=== PATIENT | female | born 1945 | race African-American/Black ===

== ENCOUNTER 2017-01-17 14:58 | Emergency (ER) | payer OTHER, BC ==
[2017-01-17 15:10] VITALS: BP 156/87; PULSE 79; TEMP 98.3; BMI 33.6
--- NOTE | 2017-01-17 15:26 | PDOC ---
History of Present Illness <Lai Lombardi - Last Filed: 01/17/17 22:53> - General History Source: Patient - History of Present Illness Initial Comments: 01/17/17 18:10 71F with pmh of DM2 and HTN presents with 6-7/10 bitemporal headache and short- term memory loss for the past 5 days. Headaches have apparent random setting, associated with red eyes and blurry vision/decrease in acuity. Patient reports usual home BP in the 120's/70's and FS 120's. Patient's friend reports her being usually way more energetic and bubbly. 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 01/18/17 14:15 <Mando Kevin - Last Filed: 01/18/17 14:20> - General Chief Complaint: CVA/TIA Stated Complaint: HEADACHE Time Seen by Provider: 01/17/17 15:22 Past History <Lai Lombardi - Last Filed: 01/17/17 22:53> - Past Medical History Diabetes: Yes HTN: Yes - Psycho/Social/Smoking Cessation Hx Suicidal Ideation: No Smoking History: Never smoked <Mando Kevin - Last Filed: 01/18/17 14:20> - Past Medical History Allergies/Adverse Reactions: Allergies Allergy/AdvReac Type Severity Reaction Status Date / Time HANNAH Inhibitors Allergy Verified 01/17/17 15:07 ciprofloxacin [From Cipro] Allergy Verified 01/17/17 15:07 ciprofloxacin HCl Allergy Verified 01/17/17 15:07 [From Cipro] Home Medications: Ambulatory Orders Losartan Potassium [Cozaar] 125 mg PO DAILY 01/17/17 Metformin HCl 500 mg PO BID 01/17/17 Metoprolol Succinate [Toprol Xl] 50 mg PO DAILY 01/17/17 Review of Systems - Review of Systems Constitutional: Yes: See HPI HEENTM: No: Symptoms Reported, Recent change in vision Respiratory: No: Symptoms reported Cardiac (ROS): No: Symptoms Reported ABD/GI: No: Symptoms Reported : No: Symptoms Reported Neurological: Yes: See HPI, Headache. No: Seizure, Tingling All Other Systems: Reviewed and Negative <Mando Kevin - Last Filed: 01/18/17 14:20> *Physical Exam - Vital Signs Last Vital Signs Temp Pulse Resp BP Pulse Ox 98.3 F 79 18 156/87 95 01/17/17 15:08 01/17/17 15:08 01/17/17 15:08 01/17/17 15:08 01/17/17 15:08 <Lai Lombardi - Last Filed: 01/17/17 22:53> - Vital Signs Last Vital Signs Temp Pulse Resp BP Pulse Ox 98.3 F 79 18 156/87 95 01/17/17 15:08 01/17/17 15:08 01/17/17 15:08 01/17/17 15:08 01/17/17 15:08 - Physical Exam General Appearance: Yes: Nourished, Appropriately Dressed. No: Apparent Distress HEENT: positive: EOMI, JOSE G, Normal ENT Inspection Neck: positive: Trachea midline, Normal Thyroid. negative: Tender Respiratory/Chest: positive: Lungs Clear, Normal Breath Sounds. negative: Chest Tender Cardiovascular: positive: Regular Rhythm, Regular Rate, S1, S2 Vascular Pulses: Dorsalis-Pedis (R): 2+, Doralis-Pedis (L): 2+ Musculoskeletal: positive: Normal Inspection Extremity: positive: Normal Capillary Refill Integumentary: positive: Normal Color, Dry, Warm Neurologic: positive: Fully Oriented, Alert, Normal Mood/Affect, Motor Strength 5/5. negative: Confused (minimental 28/30 failed backward 7's and backward spelling) <Mando Kevin - Last Filed: 01/18/17 14:20> NIH Stroke Scale - Initial Evaluation Level of consciousness: Alert Ask patient the month and their age: Answers both correctly Ask patient to open & close eyes; make fist and let go: Obeys both correctly Best gaze (horizontal eye movement): Normal Visual field testing: No visual field loss Facial paresis (Show teeth/raise eyebrows/close eyes tight): Normal symmetrical movement Motor Function: Left Arm: Normal Motor Function: Right Arm: Normal (extends arm 90 (or 45) degrees for 10 seconds without drift Motor Function: Left Leg: Normal (extends leg 30 degrees for 5 seconds without drift) Motor Function: Right Leg: Normal (extends leg 30 degrees for 5 seconds without drift) Limb Ataxia: No ataxia Sensory(Use pinprick test arms,legs,trunk,face/side to side): Normal Best language (Describe picture, name items, read sentences): No Aphasia Dysarthria (read several words): Normal articulation Extinction and Inattention: No abnormality - Total Score NIH Stroke Scale Score: 0 <Mando Kevin - Last Filed: 01/18/17 14:20> Critical Care Time/MDM Note - Medical Decision Making Note: 01/17/17 16:07 71F with pmh of DM2 and HTN presents with 6-7/10 bitemporal headache and short- term memory [facility] the [facility] CT necessary Mini-mental 28/30 Failed backwards 7's and backward word. 01/17/17 17:37 CT head negative Patient d/c 01/17/17 22:02 01/18/17 14:19 <Mando Kevin - Last Filed: 01/18/17 14:20> Discharge Disposition <Lai Lombardi - Last Filed: 01/17/17 22:53> - Discharge Dispostion Last Admission D/C Date: 02/14/11 <HerberthMando - Last Filed: 01/18/17 14:20> - Diagnosis Head ache Qualifiers: Headache type: unspecified Headache chronicity pattern: acute headache Intractability: not intractable Qualified Code(s): R51 - Headache - Discharge Dispostion Disposition: HOME Condition at time of disposition: Stable - Referrals Referrals: Yeyo Anderson MD [Primary Care Provider] - Uriel Hampton MD [Staff Physician] - - Patient Instructions Printed Discharge Instructions: DI for Headache
--- NOTE | 2017-01-17 17:28 | PDOC ---
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 pt denies trauma/ fever/chills/focl motor weakness. no previous hx/o similar sxs/migraines. - Physicial Exam PE: 01/17/17 22:52 Patient is awake and alert, resting comfortably. Patient is afebrile and hemodynamically stable. Cranial nerves II through XII are grossly intact; motor is 5 of 54; there is no pronation drift; gait is stable. Mini-Mental exam score 28. Patient is unable to perform serial sevens. - Medical Decision Making 01/17/17 22:52 Patient is 71-year-old female with history of diabetes and hypertension who presents to the ER with bilateral atraumatic temporal headache associated with episodes of foot changes in visual acuity and confusion. In the ER, patient is asymptomatic with the exception of inability to perform serial sevens. CT of head shows no evidence of acute cranial pathology. ESR is within normal limit. I do not suspect an acute vascular event at this time. Case discussed with neurology. Will discharge with neurology follow-up.
[2017-01-17 17:41] LABS: BASOPHIL 0.3 % (0-2.0); EOSINOPHIL 1.6 % (0-4.5); MCH 30.2 pg (25.7-33.7); MEAN CELL VOLUME 88.9 fl (80-96); MEAN PLT VOLUME 10.3 fl (7.5-11.1); NEUTROPHILS 55.7 % (42.8-82.8); PLATELET COUNT 214 K/MM3 (134-434); RDW 14.2 % (11.6-15.6); WHITE BLOOD COUNT 7.5 K/mm3 (4.0-10.0)
[2017-01-17 17:43] LABS: URINE APPEARANCE CLEAR; URINE BILIRUBIN NEGATIVE (NEGATIVE); URINE BLOOD NEGATIVE (NEGATIVE); URINE COLOR STRAW; URINE GLUCOSE (UA) NEGATIVE (NEGATIVE); URINE KETONE NEGATIVE (NEGATIVE); URINE LEUK ESTERASE NEGATIVE (NEGATIVE); URINE NITRITE NEGATIVE (NEGATIVE); URINE PROTEIN NEGATIVE (NEGATIVE); URINE UROBILINOGEN NEGATIVE mg/dL (0.2-1.0)
[2017-01-17 18:03] LABS: ALBUMIN 4.2 g/dl (3.4-5.0); ANION GAP 8 (8-16); BILIRUBIN,TOTAL 0.5 mg/dL (0.2-1.0); CALCIUM 9.4 mg/dL (8.5-10.1); CO2 31 mmol/L (21-32); CREATININE 0.8 mg/dL (0.55-1.02); GLUCOSE,RANDOM 89 mg/dL (74-106); SGOT/AST 20 U/L (15-37); SGPT/ALT 23 U/L (12-78); TOT PROT 8.2 g/dl (6.4-8.2)
[2017-01-17 18:04] LABS: ALK PHOS 69 U/L (45-117)
--- NOTE | 2017-01-18 16:44 | EKG ---
Test Reason : Blood Pressure : / mmHG Vent. Rate : 064 BPM Atrial Rate : 064 BPM P-R Int : 142 ms QRS Dur : 078 ms QT Int : 404 ms P-R-T Axes : 045 -12 013 degrees QTc Int : 416 ms NORMAL SINUS RHYTHM VOLTAGE CRITERIA FOR LEFT VENTRICULAR HYPERTROPHY ABNORMAL ECG WHEN COMPARED WITH ECG OF 11-FEB-2011 09:20, NO SIGNIFICANT CHANGE WAS FOUND Confirmed by JESSE GALICIA MD ([id number]) on 01/18/2017 4:44:07 PM Referred By: Confirmed By:JESSE GALICIA MD
== END 2017-01-17 22:56 | disposition home or self-care (01) ==
LOC: JER 14:58
DX: R51 Headache (principal); I10 Essential (primary) hypertension; E11.9 Type 2 diabetes mellitus without complications; Z88.1 Allergy status to other antibiotic agents; Z79.84 Long term (current) use of oral hypoglycemic drugs
CPT/HCPCS: 36415; 70450-TC; 71020-TC; 80053; 81003; 85025; 85651; 86140; 93005; 93010; 99283-25

== ENCOUNTER 2017-01-27 13:58 | Emergency (ER) | payer OTHER, BC ==
[2017-01-27 14:23] VITALS: BP 138/86; PULSE 91; TEMP 98.2; BMI 35.4
--- NOTE | 2017-01-27 15:22 | PDOC ---
History of Present Illness - General History Source: Patient Exam Limitations: No Limitations - History of Present Illness Initial Comments: The patient is a 72 yo F with a PMHx significant for DM and HTN who presents with edema and pain on the lateral aspect of her LLE since yesterday. The patient notes she was here 10 days ago ago for headaches where she also endorses LLE numbness and tingling. She states the sensation was radiating from her knee to her big toe at the time. She notes it feels like her leg is falling asleep. The patient also endorses mild SOB and palpitations. The patient denies chest pain and lightheadedness. She denies trauma to the LLE. She denies calf pain. Patient states her last A1C was 6.5. She denies abdominal pain, nausea, vomiting and diarrhea. She denies fevers, chills and cough. She denies back pain. She notes she can walk up a city block but then gets muscle cramps and needs a break. <Chichi Marin - Last Filed: 01/27/17 16:30> - General History Source: Patient Exam Limitations: No Limitations <Carley Gallagher - Last Filed: 01/28/17 20:56> - General Chief Complaint: Edema Stated Complaint: R/O DVT Time Seen by Provider: 01/27/17 15:21 Past History <Chichi Marin - Last Filed: 01/27/17 16:30> - Past Medical History Diabetes: Yes HTN: Yes - Psycho/Social/Smoking Cessation Hx Suicidal Ideation: No Smoking History: Never smoked <Carley Gallagher - Last Filed: 01/28/17 20:56> - Past Medical History Allergies/Adverse Reactions: Allergies Allergy/AdvReac Type Severity Reaction Status Date / Time HANNAH Inhibitors Allergy Verified 01/27/17 14:18 ciprofloxacin [From Cipro] Allergy Verified 01/27/17 14:18 ciprofloxacin HCl Allergy Verified 01/27/17 14:18 [From Cipro] Home Medications: Ambulatory Orders Losartan Potassium [Cozaar] 125 mg PO DAILY 01/17/17 Metformin HCl 500 mg PO BID 01/17/17 Metoprolol Succinate [Toprol Xl] 50 mg PO DAILY 01/17/17 Review of Systems - Review of Systems Able to Perform ROS?: Yes Comments:: GENERAL/CONSTITUTIONAL: No fever or chills. No weakness. HEAD, EYES, EARS, NOSE AND THROAT: No change in vision. No ear pain or discharge. No sore throat. CARDIOVASCULAR: +mild SOB and occasional palpitations No chest pain. RESPIRATORY: No cough, wheezing, or hemoptysis. GASTROINTESTINAL: No nausea, vomiting, diarrhea or constipation. GENITOURINARY: No dysuria, frequency, or change in urination. MUSCULOSKELETAL: +LLE edema and pain. No neck or back pain. SKIN: No rash NEUROLOGIC: No headache, vertigo, loss of consciousness, or change in strength/ sensation. ENDOCRINE: No increased thirst. No abnormal weight change. HEMATOLOGIC/LYMPHATIC: No anemia, easy bleeding, or history of blood clots. ALLERGIC/IMMUNOLOGIC: No hives or skin allergy. <Chichi Marin - Last Filed: 01/27/17 16:30> *Physical Exam - Vital Signs Last Vital Signs Temp Pulse Resp BP Pulse Ox 98.2 F 91 H 19 138/86 96 01/27/17 14:19 01/27/17 14:19 01/27/17 14:19 01/27/17 14:19 01/27/17 14:19 - Physical Exam Comments: GENERAL: Awake, alert, and fully oriented, in no acute distress HEAD: No signs of trauma EYES: PERRLA, EOMI, sclera anicteric, conjunctiva clear ENT: Auricles normal inspection, hearing grossly normal, nares patent, oropharynx clear without exudates. Moist mucosa NECK: Normal ROM, supple, no lymphadenopathy, JVD, or masses LUNGS: Breath sounds equal, clear to auscultation bilaterally. No wheezes, and no crackles HEART: Regular rate and rhythm, normal S1 and S2, no murmurs, rubs or gallops ABDOMEN: Soft, nontender, normoactive bowel sounds. No guarding, no rebound. No masses EXTREMITIES: Normal range of motion, no edema. No clubbing or cyanosis. No cords, erythema, L lateral calf bruising and tenderness NEUROLOGICAL: Cranial nerves II through XII grossly intact. Normal speech, normal gait SKIN: Warm, Dry, normal turgor, no rashes or lesions noted. <Chichi Marin - Last Filed: 01/27/17 16:30> - Vital Signs Last Vital Signs Temp Pulse Resp BP Pulse Ox 98.2 F 91 H 19 138/86 96 01/27/17 14:19 01/27/17 14:19 01/27/17 14:19 01/27/17 14:19 01/27/17 14:19 <Carley Gallagher - Last Filed: 01/28/17 20:56> Medical Decision Making - Medical Decision Making 01/27/17 15:21 A portion of this note was documented by scribe services under my direction. I have reviewed the details of the note, within reason, and agree with the documentation with the following case summary and management plan written by me. Nursing documentation reviewed and incorporated into medical decision making 01/27/17 17:59 This is a 72 yo F with a history of DM on oral hypoglycemics pt presents to the ER with a complaint of left leg pain No trauma No skin changes No prior episodes like this No recent immobilization No chest pain No shortness of breath No palpitations On examination Pt is ambulatory with no difficulty Left lateral leg, small bruise Mild popliteal fossa tenderness Seen by PMD Sent to the ER for Duplex Duplex demonstrates no DVT Pt has a Bakers cyst Will discharge to home Will ask pt to follow up with her Orthopedic attending She has an appointment already next week Pt given copies of her US <Carley Gallagher - Last Filed: 01/28/17 20:56> *DC/Admit/Observation/Transfer - Attestations Scribe Attestion: Documentation prepared by Chichi Marin, acting as associate medical director for Carley Gallagher MD/DO. <Chichi Marin - Last Filed: 01/27/17 16:30> - Discharge Dispostion Admit: No <Carley Gallagher - Last Filed: 01/28/17 20:56> Diagnosis at time of Disposition: Dugan's cyst, unruptured Qualifiers: Laterality: left Qualified Code(s): M71.22 - Synovial cyst of popliteal space [ Dugan], left knee - Discharge Dispostion Disposition: HOME Condition at time of disposition: Stable - Referrals Referrals: Yeyo Anderson MD [Primary Care Provider] - - Patient Instructions Printed Discharge Instructions: Bakers Cyst Additional Instructions: Thank you for coming in to the ER today Please follow up with your Orthopedist next week Please return to the ER for any other concerns or complaints
== END 2017-01-27 18:35 | disposition home or self-care (01) ==
LOC: JER 13:58 → JERFT 13:58 → JER 18:35
DX: M71.22 Synovial cyst of popliteal space [Baker], left knee (principal); I10 Essential (primary) hypertension; E11.9 Type 2 diabetes mellitus without complications; Z79.84 Long term (current) use of oral hypoglycemic drugs
CPT/HCPCS: 93970-TC; 99282-25

== ENCOUNTER 2018-07-20 11:41 | Observation (INO) | payer OTHER, BC ==
--- NOTE | 2018-07-20 11:56 | PDOC ---
History of Present Illness - General Chief Complaint: Blood Pressure Problem Stated Complaint: HYPERTENSION Time Seen by Provider: 07/20/18 11:56 History Source: Patient Exam Limitations: No Limitations - History of Present Illness Initial Comments: 07/20/18 12:26 73 year old female with PMH HTN, DM, HLD presented to ED for generalized weakness x5 days. Pt stated Monday morning she awoke more generally weak than normal, Monday she had bilateral blurry vision lasting 4-5 hours that self resolved, Monday she was generally weak/sore throat/runny nose/right ear pain and slept all day, she had disequilibrium, and today she complains of generalized weakness. Pt admitted to intermittent headache and a single episode of sharp chest pain lasting 5 minutes 2 days ago. Pt denied fever , chills, tinnitus, weakness, numbness, tingling, shortness of breath, nausea, vomiting, diarrhea, abdominal pain, back pain, lower extremity swelling. Allergies: ACEI, Cipro NIH Stroke Scale - Last Known Well Date/Time & Onset Date Last Known Well: 07/19/18 - Initial Evaluation Level of consciousness: Alert Ask patient the month and their age: Answers both correctly Ask patient to open & close eyes; make fist and let go: Obeys both correctly Best gaze (horizontal eye movement): Normal Visual field testing: No visual field loss Facial paresis (Show teeth/raise eyebrows/close eyes tight): Normal symmetrical movement Motor Function: Left Arm: Normal Motor Function: Right Arm: Normal (extends arm 90 (or 45) degrees for 10 seconds without drift Motor Function: Left Leg: Normal (extends leg 30 degrees for 5 seconds without drift) Motor Function: Right Leg: Normal (extends leg 30 degrees for 5 seconds without drift) Limb Ataxia: No ataxia Sensory(Use pinprick test arms,legs,trunk,face/side to side): Mild to moderate decrease in sensation Best language (Describe picture, name items, read sentences): No Aphasia Dysarthria (read several words): Normal articulation Extinction and Inattention: No abnormality - Total Score NIH Stroke Scale Score: 1 Past History - Past Medical History Allergies/Adverse Reactions: Allergies Allergy/AdvReac Type Severity Reaction Status Date / Time HANNAH Inhibitors Allergy Verified 07/20/18 11:49 ciprofloxacin [From Cipro] Allergy Verified 07/20/18 11:49 ciprofloxacin HCl Allergy Verified 07/20/18 11:49 [From Cipro] Home Medications: Ambulatory Orders Metoprolol Succinate [Toprol Xl] 100 mg PO DAILY 01/17/17 metFORMIN HCL [Metformin HCl] 500 mg PO BID 01/17/17 Losartan/Hydrochlorothiazide [Losartan-Hctz 100-25 mg Tab] 1 each PO DAILY 07/20 Acetaminophen [Tylenol .Regular Strength -] 650 mg PO Q4H PRN tablet 07/21/18 Aspirin [ASA -] 81 mg PO DAILY tab.chew 07/21/18 Atorvastatin Ca [Lipitor] 10 mg PO HS #30 tablet 07/21/18 COPD: No Diabetes: Yes HTN: Yes - Suicide/Smoking/Psychosocial Hx Smoking History: Never smoked Review of Systems - Review of Systems Able to Perform ROS?: Yes Comments:: 07/20/18 12:30 General: admitted to generalized weakness. denied fever, chills, night sweats. HEENT: admitted to sore throat, rhinorrhea, ear pain. Heart: admitted to chest pain. denied palpitations, syncope, lower extremity swelling, diaphoresis. Respiratory: denied shortness of breath, cough, sputum production, hemoptysis. Abdomen: denied abdominal pain, nausea, vomiting, diarrhea, constipation, blood in stool. : denied dysuria, increased urinary frequency, hematuria, urinary incontinence , flank pain. Back: denied back pain. Musculoskeletal: denied joint pain, muscle pain, joint swelling. Neurological: admitted to headache, disequilibrium. denied dizziness, numbness, tingling, weakness. Skin: denied rash, laceration, abrasion. *Physical Exam - Vital Signs Last Vital Signs Temp Pulse Resp BP Pulse Ox 98.8 F 100 H 18 156/93 98 07/20/18 11:49 07/20/18 11:49 07/20/18 11:49 07/20/18 11:49 07/20/18 11:49 - Physical Exam Comments: 07/20/18 12:40 Constitutional: Well-nourished, Well-developed, appearing stated age. HEENT: head is normocephalic, atraumatic. EOMI. PERRLA. no erythema or bulging to TM bilaterally. no posterior pharyngeal erythema. pain with insertion of otoscope into right ear. no pain with pulling of right pinna. Neck: supple. Full ROM. no midline c-spine tenderness. no paraspinal tenderness. Heart: regular rhythm. no murmurs, rubs or gallops. Lungs: clear to auscultation bilaterally. no crackles, rhonchi or wheezing. no stridor. Abdomen: soft, nontender. normal bowel sounds. no rebound, guarding, masses. Extremities: Peripheral pulses intact. No lower extremity edema. Neurological: Alert. Oriented x3. CN2-12 intact. 5/5 strength all extremities. Full sensation all extremities and bilateral face, but decreased to the entire right side. Romberg negative. Finger to nose normal. Gait normal. Psych: awake, alert, oriented x3. Follows commands. Answers questions appropriately. tearful, anxious. Moderate Sedation - Procedure Monitoring Vital Signs: Procedure Monitoring Vital Signs Temperature 98.8 F 07/20/18 11:49 Pulse Rate 100 H 07/20/18 11:49 Respiratory Rate 18 07/20/18 11:49 Blood Pressure 156/93 07/20/18 11:49 O2 Sat by Pulse Oximetry (%) 98 07/20/18 11:49 ED Treatment Course - LABORATORY CBC & Chemistry Diagram: 07/21/18 07:00 07/21/18 07:00 Medical Decision Making - Medical Decision Making 07/20/18 12:41 73 year old female with above PMH presented to ED for generalized weakness associated with resolved disequilibrium, resolved sore throat/runny nose/right ear pain, resolved chest pain, headache. Initial Vital Signs Temp Pulse Resp BP Pulse Ox 98.8 F 100 H 18 156/93 98 07/20/18 11:49 07/20/18 11:49 07/20/18 11:49 07/20/18 11:49 07/20/18 11:49 Afebrile. Borderline tachycardia. No tachypnea. Mild hypertension. No hypoxia on room air. o Labs ordered: CBC, CMP, UA/UC, troponin c Imaging ordered: CT head g Medications ordered: none EKG performed at 1210: rate 91, regular rhythm, left axis, normal intervals, no acute ST changes, 2 PVCs. 07/20/18 13:[address] head report: negative for acute intracranial pathology CBC WBC 10.6 K/mm3 (4.0-10.0) H 07/20/18 12:25 RBC 4.77 M/mm3 (3.60-5.2) 07/20/18 12:25 Hgb 15.4 GM/dL (10.7-15.3) H 07/20/18 12:25 Hct 44.0 % (32.4-45.2) 07/20/18 12:25 MCV 92.3 fl (80-96) 07/20/18 12:25 MCH 32.2 pg (25.7-33.7) 07/20/18 12:25 MCHC 35.0 g/dl (32.0-36.0) 07/20/18 12:25 RDW 16.4 % (11.6-15.6) H 07/20/18 12:25 Plt Count 200 K/MM3 (134-434) 07/20/18 12:25 MPV 10.3 fl (7.5-11.1) 07/20/18 12:25 Absolute Neuts (auto) 8.0 K/mm3 (1.5-8.0) 07/20/18 12:25 Neutrophils % 75.3 % (42.8-82.8) D 07/20/18 12:25 Lymphocytes % 16.3 % (8-40) D 07/20/18 12:25 Monocytes % 7.6 % (3.8-10.2) 07/20/18 12:25 Eosinophils % 0.5 % (0-4.5) 07/20/18 12:25 Basophils % 0.3 % (0-2.0) 07/20/18 12:25 Nucleated RBC % 0 % (0-0) 07/20/18 12:25 Mild leukocytosis with no left shift. CMP Sodium 141 mmol/L (136-145) 07/20/18 12:24 Potassium 3.7 mmol/L (3.5-5.1) 07/20/18 12:24 Chloride 106 mmol/L (98-107) 07/20/18 12:24 Carbon Dioxide 28 mmol/L (21-32) 07/20/18 12:24 Anion Gap 7 MMOL/L (8-16) L 07/20/18 12:24 BUN 14 mg/dL (7-18) 07/20/18 12:24 Creatinine 0.9 mg/dL (0.55-1.3) 07/20/18 12:24 Creat Clearance w eGFR > 60 (>60) 07/20/18 12:24 Random Glucose 125 mg/dL (74-106) H 07/20/18 12:24 Calcium 9.6 mg/dL (8.5-10.1) 07/20/18 12:24 Total Bilirubin 0.5 mg/dL (0.2-1) 07/20/18 12:24 AST 18 U/L (15-37) 07/20/18 12:24 ALT 17 U/L (13-61) 07/20/18 12:24 Alkaline Phosphatase 69 U/L (45-117) 07/20/18 12:24 Troponin I < 0.02 ng/ml (0.00-0.05) 07/20/18 12:10 Total Protein 8.3 g/dl (6.4-8.2) H 07/20/18 12:24 Albumin 4.0 g/dl (3.4-5.0) 07/20/18 12:24 No electrolyte abnormalities. No RICO. Normal troponin. No transaminitis. 07/20/18 13:[address] Babar Samuel, who recommeded admission for rule out TIA. Pt admitted. 07/20/18 14:10 Urine Test Results Urine Color Yellow 07/20/18 12:45 Urine Appearance Slcloudy 07/20/18 12:45 Urine pH 5.0 (5.0-8.0) 07/20/18 12:45 Ur Specific Senath 1.020 (1.010-1.035) 07/20/18 12:45 Urine Protein 3+ (NEGATIVE) H 07/20/18 12:45 Urine Glucose (UA) Negative (NEGATIVE) 07/20/18 12:45 Urine Ketones Negative (NEGATIVE) 07/20/18 12:45 Urine Blood Negative (NEGATIVE) 07/20/18 12:45 Urine Nitrite Negative (NEGATIVE) 07/20/18 12:45 Urine Bilirubin Negative (<2.0 mg/dL) 07/20/18 12:45 Ur Leukocyte Esterase Negative (NEGATIVE) 07/20/18 12:45 No evidence of UTI. Protein in urine. c CXR my read: no infiltrate. sharp costophrenic angles. no cardiomegaly. no large pneumothorax. - Pending official report. 07/21/18 15:12 Official report: negative for infiltrate, pleural effusion, pneumothorax. *DC/Admit/Observation/Transfer Diagnosis at time of Disposition: Blurry vision, Disequilibrium, Generalized weakness - Discharge Dispostion Disposition: HOME Condition at time of disposition: Stable Decision to Admit order: Yes - Prescriptions - Referrals - Patient Instructions - Post Discharge Activity
[2018-07-20 12:57] LABS: BASO % 0.3 % (0-2.0); EOS % 0.5 % (0-4.5); HEMOGLOBIN 15.4 GM/dL (10.7-15.3); LYMPH % 16.3 % (8-40); MCH 32.2 pg (25.7-33.7); MEAN CELL VOLUME 92.3 fl (80-96); MEAN PLT VOLUME 10.3 fl (7.5-11.1); MONO % 7.6 % (3.8-10.2); NEUT % 75.3 % (42.8-82.8); PLATELET COUNT 200 K/MM3 (134-434); RBC 4.77 M/mm3 (3.60-5.2); RDW 16.4 % (11.6-15.6); WHITE BLOOD COUNT 10.6 K/mm3 (4.0-10.0)
[2018-07-20 13:07] LABS: ALK PHOS 69 U/L (45-117); ANION GAP 7 MMOL/L (8-16); BILIRUBIN,TOTAL 0.5 mg/dL (0.2-1); BLOOD UREA NITROGEN 14 mg/dL (7-18); CALCIUM 9.6 mg/dL (8.5-10.1); CHLORIDE 106 mmol/L (98-107); CO2 28 mmol/L (21-32); CREATININE 0.9 mg/dL (0.55-1.3); GLUCOSE,RANDOM 125 mg/dL (74-106); POTASSIUM 3.7 mmol/L (3.5-5.1); SGOT/AST 18 U/L (15-37); SGPT/ALT 17 U/L (13-61); SODIUM 141 mmol/L (136-145); TOT PROT 8.3 g/dl (6.4-8.2)
[2018-07-20 14:04] LABS: URINE APPEARANCE SLCLOUDY; URINE BILIRUBIN NEGATIVE (<2.0 mg/dL); URINE COLOR YELLOW; URINE GLUCOSE (UA) NEGATIVE (NEGATIVE); URINE KETONE NEGATIVE (NEGATIVE); URINE LEUK ESTERASE NEGATIVE (NEGATIVE); URINE NITRITE NEGATIVE (NEGATIVE); URINE PROTEIN 3+ (NEGATIVE); URINE UROBILINOGEN NEGATIVE mg/dL (0.2-1.0)
--- NOTE | 2018-07-20 14:04 | PDOC ---
Attending Attestation - Resident Resident Name: Angeli Chilel - ED Attending Attestation I have performed the following: I have examined & evaluated the patient, The case was reviewed & discussed with the resident, I agree w/resident's findings & plan, Exceptions are as noted - Medical Decision Making 07/20/18 14:00 73 yo HTN HLD DM here with feeling fatigued for 4 days. has blurry vision ( hazy ) four days ago, then felt generalized weakess. felt like equilibrium off, no difficulty walking but has sensation of movement. also runny nose, right ear fullness. no focal weakness no change to speech, vision changes resolved. no cp no sob. no f/c no urinary complaints. on exam pt wiht normal nuerological exam, normal cerebellar exam ( finger to nose, gait, alt hand movement, neg romberg) strength 5/5. and CN II - XII intact. . differential : labrynthitis, cerebellar cva, tia, infeciton such as uti or pna, mi. plan labs ekg ct head. cxr ua. ct head normal. labs normal. ua. will admit for mri due to risk factors, and r/ o cerebellar tia, cva. d/w milo Samuel, admit. <Zahraa Galvez - Last Filed: 07/20/18 14:00> - HPI HPI: 07/20/18 14:16 The patient is a 73 year old female, with a significant past medical history of HTN, DM, and HLD who presents to the emergency department with 5 days of generalized weakness. Patient notes that Monday morning she woke up weaker than usual. Monday she had bilateral blurry vision described as "hazy" that self resolved, Monday she had a sore throat, runny nose, and right ear pain that later self resolved, she had disequilibrium, and today she complains of generalized weakness. The patient denies tinnitus, weakness, or numbness. The patient denies chest pain, shortness of breath, headache and dizziness. The patient denies fever, chills, nausea, vomit, diarrhea and constipation. The patient denies dysuria, frequency, urgency and hematuria. Allergies: ACEI, Cipro Past surgical history: None reported Social history: None reported PCP: Dr. Anderson - Physicial Exam PE: 07/20/18 14:17 GENERAL: Awake, alert, and fully oriented, in no acute distress HEAD: No signs of trauma EYES: PERRLA, EOMI, sclera anicteric, conjunctiva clear ENT: Auricles normal inspection, hearing grossly normal, nares patent, oropharynx clear without exudates. Moist mucosa NECK: Normal ROM, supple, no lymphadenopathy, JVD, or masses LUNGS: Breath sounds equal, clear to auscultation bilaterally. Cardiac lungs normal. No wheezes, and no crackles HEART: Regular rate and rhythm, normal S1 and S2, no murmurs, rubs or gallops ABDOMEN: Soft, nontender, normoactive bowel sounds. No guarding, no rebound. No masses EXTREMITIES: Normal range of motion, no edema. No clubbing or cyanosis. No cords, erythema, or tenderness NEUROLOGICAL: Cranial nerves II through XII grossly intact. Normal cerebellar exam . Alternating hands normal. Negative romberg. Normal speech, normal gait SKIN: Warm, Dry, normal turgor, no rashes or lesions noted. <Jose De La Vega - Last Filed: 07/20/18 14:18> NIH Stroke Scale - Initial Evaluation Level of consciousness: Alert Ask patient the month and their age: Answers both correctly Ask patient to open & close eyes; make fist and let go: Obeys both correctly Best gaze (horizontal eye movement): Normal Visual field testing: No visual field loss Facial paresis (Show teeth/raise eyebrows/close eyes tight): Normal symmetrical movement Motor Function: Left Arm: Normal Motor Function: Right Arm: Normal (extends arm 90 (or 45) degrees for 10 seconds without drift Motor Function: Left Leg: Normal (extends leg 30 degrees for 5 seconds without drift) Motor Function: Right Leg: Normal (extends leg 30 degrees for 5 seconds without drift) Limb Ataxia: No ataxia Sensory(Use pinprick test arms,legs,trunk,face/side to side): Mild to moderate decrease in sensation (right side decreased sensation to light tough.) Best language (Describe picture, name items, read sentences): No Aphasia Dysarthria (read several words): Normal articulation Extinction and Inattention: No abnormality - Total Score NIH Stroke Scale Score: 1 <Zahraa Galvez - Last Filed: 07/20/18 14:00> Attestations - Attestations 07/20/18 14:18 Documentation prepared by Jose De La Vega, acting as diagnostic medical sonographer for Zahraa Galvez MD, <Jose De La Vega - Last Filed: 07/20/18 14:18>
[2018-07-20 14:16] LABS: EPI CELLS FEW /HPF (FEW); URINE MUCUS RARE
[2018-07-20] MEDS ORDERED: ACETAMINOPHEN 325 MG TABLET (FP) PO PRN (15:16)
[2018-07-20 16:35] VITALS: BMI 35.4
--- NOTE | 2018-07-20 17:14 | HP ---
Admitting History and Physical - Primary Care Physician PCP: Yeyo Anderson - Admission History of Present Illness: pt seen/ examined in tele chart reviewed/ case was discussed with er physician Er records reviewed Per Er records 73 year old female with PMH HTN, DM, HLD presented to ED for generalized weakness x5 days. Pt stated Monday morning she awoke more generally weak than normal, Monday she had bilateral blurry vision lasting 4-5 hours that self resolved, Monday she was generally weak/sore throat/runny nose/right ear pain and slept all day, she had disequilibrium, and today she complains of generalized weakness. Pt admitted to intermittent headache and a single episode of sharp chest pain lasting 5 minutes 2 days ago. Pt denied fever , chills, tinnitus, weakness, numbness, tingling, shortness of breath, nausea, vomiting, diarrhea, abdominal pain, back pain, lower extremity swelling. ct head -ve pt admitted to tele for observation. History Source: Patient, Medical Record Limitations to Obtaining History: No Limitations - Past Medical History Cardiovascular: Yes: HTN - Smoking History Smoking history: Never smoked - Alcohol/Substance Use Hx Alcohol Use: No Home Medications - Allergies Allergies/Adverse Reactions: Allergies Allergy/AdvReac Type Severity Reaction Status Date / Time HANNAH Inhibitors Allergy Verified 07/20/18 11:49 ciprofloxacin [From Cipro] Allergy Verified 07/20/18 11:49 ciprofloxacin HCl Allergy Verified 07/20/18 11:49 [From Cipro] - Home Medications Home Medications: Ambulatory Orders Metoprolol Succinate [Toprol Xl] 100 mg PO DAILY 01/17/17 metFORMIN HCL [Metformin HCl] 500 mg PO BID 01/17/17 Losartan/Hydrochlorothiazide [Losartan-Hctz 100-25 mg Tab] 1 each PO DAILY 07/20 Metaxalone [Skelaxin] 800 mg PO TID PRN 07/20/18 Family Disease History - Family Disease History Family History: Unremarkable Review of Systems - Review of Systems Constitutional: reports: No Symptoms Eyes: reports: Blurred Vision HENT: reports: No Symptoms Neck: reports: No Symptoms Cardiovascular: reports: No Symptoms Respiratory: reports: No Symptoms Gastrointestinal: reports: No Symptoms Genitourinary: reports: No Symptoms Neurological: reports: Dizziness, Weakness Psychiatric: reports: No Symptoms Physical Examination Vital Signs: Vital Signs Temperature 98.3 F 07/20/18 14:28 Pulse Rate 84 07/20/18 14:28 Respiratory Rate 18 07/20/18 14:28 Blood Pressure 150/106 H 07/20/18 14:28 O2 Sat by Pulse Oximetry (%) 98 07/20/18 16:12 Constitutional: Yes: No Distress, Calm Eyes: Yes: Conjunctiva Clear HENT: Yes: WNL Neck: Yes: Supple Cardiovascular: Yes: Regular Rate and Rhythm Respiratory: Yes: CTA Bilaterally Gastrointestinal: Yes: Soft Edema: No Neurological: Yes: WNL, Alert, Cran Nerves II-XII Intact Psychiatric: Yes: Alert Labs: CBC, BMP 07/20/18 12:25 07/20/18 12:24 Imaging - Results Chest X-ray: Report Reviewed Cat Scan: Report Reviewed Problem List - Problems (1) TIA (transient ischemic attack) Code(s): G45.9 - TRANSIENT CEREBRAL ISCHEMIC ATTACK, UNSPECIFIED (2) Blurry vision Code(s): H53.8 - OTHER VISUAL DISTURBANCES (3) Disequilibrium Code(s): R42 - DIZZINESS AND GIDDINESS (4) Generalized weakness Code(s): R53.1 - WEAKNESS Assessment/Plan doubt TIA monitor on tele tonight discussed with neurology-- will follow check u/s carotid repeat ct head in am asa check tsh/ lipid profile will follow
--- NOTE | 2018-07-20 17:21 | CON.NEURO ---
Consult - Alcohol/Substance Use Hx Alcohol Use: No - Smoking History Smoking history: Never smoked Home Medications - Allergies Allergies/Adverse Reactions: Allergies Allergy/AdvReac Type Severity Reaction Status Date / Time HANNAH Inhibitors Allergy Verified 07/20/18 11:49 ciprofloxacin [From Cipro] Allergy Verified 07/20/18 11:49 ciprofloxacin HCl Allergy Verified 07/20/18 11:49 [From Cipro] - Home Medications Home Medications: Ambulatory Orders Metoprolol Succinate [Toprol Xl] 100 mg PO DAILY 01/17/17 metFORMIN HCL [Metformin HCl] 500 mg PO BID 01/17/17 Losartan/Hydrochlorothiazide [Losartan-Hctz 100-25 mg Tab] 1 each PO DAILY 07/20 Metaxalone [Skelaxin] 800 mg PO TID PRN 07/20/18 Physical Exam-Neuro Vital Signs: Vital Signs Temperature 98.3 F 07/20/18 14:28 Pulse Rate 84 07/20/18 14:28 Respiratory Rate 18 07/20/18 14:28 Blood Pressure 150/106 H 07/20/18 14:28 O2 Sat by Pulse Oximetry (%) 98 07/20/18 16:12 Labs: CBC, BMP 07/20/18 12:25 07/20/18 12:24 Assessment/Plan cc Feeling of generalized weakness for five days HPI: 73 year old female history of DM,HTN,HLD has been complaiing of generalized weaknes. Patient has history of DM, HTN. She never had stroke or cad. Patient had ct head. She also have back pain and recently was started on skelaxin . Patient denies any focal neurological symptoms including dysphagia, dysarthria, diplopia, no hemiparesis, no sensory loss or slurring of speech. She is feeling better. PMH as above. Allergies: ACEI, Cipro Allergies/Adverse Reactions: Allergies Allergy/AdvReac Type Severity Reaction Status Date / Time HANNAH Inhibitors Allergy Verified 07/20/18 11:49 ciprofloxacin [From Cipro] Allergy Verified 07/20/18 11:49 ciprofloxacin HCl Allergy Verified 07/20/18 11:49 [From Cipro] Home Medications: Metoprolol Succinate [Toprol Xl] 100 mg PO DAILY 01/17/17 metFORMIN HCL [Metformin HCl] 500 mg PO BID 01/17/17 Losartan/Hydrochlorothiazide [Losartan-Hctz 100-25 mg Tab] 1 each PO DAILY 07/20 Metaxalone [Skelaxin] 800 mg PO TID PRN 07/20/18 FH,ROS reviewed in chart Neurological Examination NIH score 0 and bp was 150/106 Alert oriented x 3, no neck stiffness moving all extremity sensation is normal gait and coordination is normal ct head is normal Assessment Transient generalized weakness, Less likley to be tia but cant rule out , suggest to repeat ct head and concur with carotid ultrasound Plan add aspirin , risk factor modifications Thanking you so much Doc Duncan MD
[2018-07-20] MEDS: ASPIRIN 81 MG CHEWABLE TABLETS PO SCH (17:51)
[2018-07-20] MEDS: HEPARIN NA (PORCINE) 5,000 UNITS/ML 1ML VIAL SQ SCH (21:42)
[2018-07-20] MEDS ORDERED: ATORVASTATIN CA 40 MG TABLET (FP) PO SCH (22:00)
[2018-07-21 07:29] LABS: BASO % 0.4 % (0-2.0); EOS % 0.8 % (0-4.5); HEMATOCRIT 43.3 % (32.4-45.2); HEMOGLOBIN 15.1 GM/dL (10.7-15.3); LYMPH % 31.4 % (8-40); MCH 31.9 pg (25.7-33.7); MCHC 34.9 g/dl (32.0-36.0); MEAN CELL VOLUME 91.5 fl (80-96); MEAN PLT VOLUME 10.4 fl (7.5-11.1); MONO % 6.6 % (3.8-10.2); NEUT % 60.8 % (42.8-82.8); PLATELET COUNT 204 K/MM3 (134-434); RBC 4.73 M/mm3 (3.60-5.2); RDW 15.8 % (11.6-15.6); WHITE BLOOD COUNT 8.5 K/mm3 (4.0-10.0)
[2018-07-21 07:53] LABS: CHOLESTEROL 242 mg/dL (50-200); HDL CHOLESTEROL 65 mg/dL (40-60); TRIGLYCERIDES 127 mg/dL (0-150)
[2018-07-21 07:55] LABS: ALBUMIN 3.7 g/dl (3.4-5.0); ALK PHOS 73 U/L (45-117); ANION GAP 7 MMOL/L (8-16); BILIRUBIN,TOTAL 0.7 mg/dL (0.2-1); BLOOD UREA NITROGEN 14 mg/dL (7-18); CALCIUM 9.2 mg/dL (8.5-10.1); CHLORIDE 104 mmol/L (98-107); CO2 28 mmol/L (21-32); CREATININE 0.9 mg/dL (0.55-1.3); GLUCOSE,RANDOM 137 mg/dL (74-106); POTASSIUM 3.8 mmol/L (3.5-5.1); SGOT/AST 16 U/L (15-37); SGPT/ALT 16 U/L (13-61); SODIUM 140 mmol/L (136-145); TOT PROT 8.1 g/dl (6.4-8.2)
[2018-07-21] MEDS: ASPIRIN 81 MG CHEWABLE TABLETS PO SCH (09:51)
[2018-07-21] MEDS: HEPARIN NA (PORCINE) 5,000 UNITS/ML 1ML VIAL SQ SCH (09:51)
[2018-07-21] MEDS ORDERED: LOSARTAN POTASSIUM 50 MG TABLET (FP) PO SCH (10:00)
[2018-07-21] MEDS ORDERED: HYDROCHLOROTHIAZIDE 25 MG TABLET (FP) PO SCH (10:00)
[2018-07-21] MEDS ORDERED: PATIENT'S OWN MEDICATION (NON-FORMULARY) (Losartan/Hydrochlorothiazide [Losartan-Hctz 100- PO SCH (10:00)
--- NOTE | 2018-07-21 13:08 | EKG ---
Test Reason : Blood Pressure : / mmHG Vent. Rate : 091 BPM Atrial Rate : 091 BPM P-R Int : 140 ms QRS Dur : 072 ms QT Int : 362 ms P-R-T Axes : 039 -12 021 degrees QTc Int : 445 ms POOR DATA QUALITY, INTERPRETATION MAY BE ADVERSELY AFFECTED SINUS RHYTHM WITH OCCASIONAL PREMATURE VENTRICULAR COMPLEXES POSSIBLE LEFT ATRIAL ENLARGEMENT LEFT VENTRICULAR HYPERTROPHY ABNORMAL ECG WHEN COMPARED WITH ECG OF 17-JAN-2017 16:08, PREMATURE VENTRICULAR COMPLEXES ARE NOW PRESENT Confirmed by PEE ZARATE MD ([id number]) on 07/21/2018 1:08:16 PM Referred By: Confirmed By:PEE ZARATE MD
[2018-07-21 13:42] VITALS: BP 140/80; PULSE 98; TEMP 97.8
--- NOTE | 2018-07-21 13:56 | DS ---
Physical Examination Vital Signs: Vital Signs Temperature 97.8 F 07/21/18 13:41 Pulse Rate 98 H 07/21/18 13:41 Respiratory Rate 18 07/21/18 13:41 Blood Pressure 140/80 07/21/18 13:41 O2 Sat by Pulse Oximetry (%) 98 07/21/18 12:00 Findings/Remarks: feels well no complains wants to go home denies cp/sob/abd pain Constitutional: Yes: No Distress, Calm Eyes: Yes: Conjunctiva Clear Neck: Yes: Supple Cardiovascular: Yes: Regular Rate and Rhythm Respiratory: Yes: CTA Bilaterally Gastrointestinal: Yes: Soft Edema: No Neurological: Yes: WNL Psychiatric: Yes: WNL Labs: CBC, BMP 07/21/18 07:00 07/21/18 07:00 Discharge Summary Reason For Visit: BLURRING OF VISUAL IMAGE,WEAKNESS,DISEQUILIBRIUM Current Active Problems Blurry vision (Acute) Disequilibrium (Acute) Generalized weakness (Acute) TIA (transient ischemic attack) (Acute) Hospital Course: admitted for possible tia work up -ve repeat ct head / carotid done -- pending report overall stable neurology consult noted/ appreciated-- discussed also will d/c home add statin and baby asa pt advised to f/u with her pmd next weeks pt in agreement . Discussed with nursing staff also Condition: Stable - Instructions Referrals: Yeyo Anderson MD [Primary Care Provider] - Disposition: HOME - Home Medications Comprehensive Discharge Medication List: Ambulatory Orders Metoprolol Succinate [Toprol Xl] 100 mg PO DAILY 01/17/17 metFORMIN HCL [Metformin HCl] 500 mg PO BID 01/17/17 Losartan/Hydrochlorothiazide [Losartan-Hctz 100-25 mg Tab] 1 each PO DAILY 07/20 Acetaminophen [Tylenol .Regular Strength -] 650 mg PO Q4H PRN tablet 07/21/18 Aspirin [ASA -] 81 mg PO DAILY tab.chew 07/21/18 Atorvastatin Ca [Lipitor] 10 mg PO HS #30 tablet 07/21/18
== END 2018-07-21 14:29 | disposition home or self-care (01) ==
LOC: JER 11:41 → JERBED 13:42 → INTOOBSV 13:42 → J4W 14:49
PROVIDERS: ADMIT Internal Medicine; ATTEND Internal Medicine
PROC: 3E013GC Introduction of Other Therapeutic Substance into Subcutaneous Tissue, Percutaneous Approach (ICD-10-PCS; principal; 2018-07-20)
DX: M62.81 Muscle weakness (generalized) (principal); H53.8 Other visual disturbances; G45.9 Transient cerebral ischemic attack, unspecified; E42 Marasmic kwashiorkor
CPT/HCPCS: 36415; 70450-TC; 71046-TC-FY; 80053; 80061; 81003; 81015; 82962; 83721; 84484; 85025; 87086; 93005; 93010; 93880-TC; 96372; 99285-25; G0378; J1644

== ENCOUNTER 2019-02-14 10:14 | Observation (INO) | payer OTHER, BC ==
--- NOTE | 2019-02-14 11:44 | PDOC ---
History of Present Illness - General Chief Complaint: Shortness of Breath Stated Complaint: DIFFUCULTY BREATHING Time Seen by Provider: 02/14/19 11:16 - History of Present Illness Initial Comments: 02/14/19 11:43 The patient is a 74 year old female with a PMH of NIDDM, HTN presents with 2 month h/o shortness of breath and chest pain. Shortness of breath is on exertion and has been worsening over the last two months. Endorses associated leg swelling and notes she has had to sleep on an extra pillow at night. Patient also c/o two month h/o intermittent chest pain that occurs for 10 minutes twice daily. Chest pain is like sharp needle pokes and is not associated with movement or breathing. Does not associate chest pain with dyspneic episodes and no associated lightheadedness, palpitations, nausea, diaphoresis. Notes she had a productive (yellowish sputum) cough last week and her counseling services manager informed her that the water in the building tested positive for Legionella. H/o negative stress testing 10 years previous. Remote h/o smoking for one year in her early s. Allergy: Floroquinolones, HANNAH-I PMD: Dr. Yeyo Anderson Past History - Past Medical History Allergies/Adverse Reactions: Allergies Allergy/AdvReac Type Severity Reaction Status Date / Time HANNAH Inhibitors Allergy Verified 02/14/19 10:21 ciprofloxacin [From Cipro] Allergy Verified 02/14/19 10:21 ciprofloxacin HCl Allergy Verified 02/14/19 10:21 [From Cipro] Home Medications: Ambulatory Orders Metoprolol Succinate [Toprol Xl] 50 mg PO DAILY 01/17/17 metFORMIN HCL [Metformin HCl] 500 mg PO DAILY 01/17/17 Losartan/Hydrochlorothiazide [Losartan-Hctz 100-25 mg Tab] 1 each PO DAILY 07/20 Acetaminophen [Tylenol .Regular Strength -] 650 mg PO Q4H PRN tablet 07/21/18 Aspirin [ASA -] 81 mg PO DAILY tab.chew 07/21/18 Atorvastatin Ca [Lipitor] 10 mg PO HS #30 tablet 07/21/18 COPD: No Diabetes: Yes (borderline) HTN: Yes - Immunization History Immunization Up to Date: Yes - Suicide/Smoking/Psychosocial Hx Smoking History: Never smoked Hx Alcohol Use: Yes (social) Drug/Substance Use Hx: No Substance Use Type: None Hx Substance Use Treatment: No Review of Systems - Review of Systems Constitutional: No: Chills, Fever HEENTM: No: Recent change in vision Respiratory: Yes: Shortness of Breath, Productive cough Cardiac (ROS): Yes: Chest Pain, Other (B/L LE swelling). No: Lightheadedness, Palpitations, Syncope ABD/GI: No: Constipated, Diarrhea, Nausea, Vomiting *Physical Exam - Vital Signs Last Vital Signs Temp Pulse Resp BP Pulse Ox 97.9 F 68 18 153/82 98 02/14/19 10:22 02/14/19 10:22 02/14/19 10:22 02/14/19 10:22 02/14/19 10:22 - Physical Exam General Appearance: Yes: Nourished, Obese HEENT: positive: Normal Voice, Hearing Grossly Normal Neck: positive: Trachea midline, Supple Respiratory/Chest: positive: Other (decreased breath sounds B/L) Cardiovascular: positive: Regular Rhythm, S1, S2, Other (B/L LE non-pitting edema) Gastrointestinal/Abdominal: positive: Normal Bowel Sounds, Soft Extremity: positive: Normal Capillary Refill, Normal Inspection Integumentary: positive: Normal Color, Dry, Warm Neurologic: positive: ed tech II-XII NML intact, Fully Oriented, Alert Heart Score/ECG Review - ECG Impressions Comment:: 02/15/19 13:08 HR 61, with LVH, flattened T waves in inferior leads II, aVF - c/w previous ECG dated 07/20/18 ED Treatment Course - LABORATORY CBC & Chemistry Diagram: 02/14/19 12:20 02/14/19 15:35 Medical Decision Making - Medical Decision Making 02/14/19 12:22 74 year old female with 2 month h/o worsening CORONA, PND and intermittent chest pain. VS unremarkable. Will evaluate for new onset CHF, also consider r/o ACS, PNA, other valvular disease. EKG, Troponin, Basic Labs, CXR, Cardiac monitoring. Reassess. EKG w/o acute ischemic change as documented in EKG section of EMR Troponin (-) x1 CBC, CMP uremarkable CXR w/o acute pathology Patient reassessed @ bedside No repeat CP while in the ED, Heart Score 4, patient requires monitoring for serial troponins, echocardiogram, full cardiac evaluation. 02/14/19 13:39 Case d/w Dr. Cabello (admits for patient's PMD) - will admit OBS Tele Patient counseled on plan of care, amenable to admission *DC/Admit/Observation/Transfer Diagnosis at time of Disposition: CORONA (dyspnea on exertion) - Discharge Dispostion Condition at time of disposition: Fair Decision to Admit order: Yes - Referrals - Patient Instructions - Post Discharge Activity
[2019-02-14 12:34] LABS: BASO % 0.5 % (0-2.0); EOS % 1.4 % (0-4.5); HEMATOCRIT 41.2 % (32.4-45.2); HEMOGLOBIN 14.1 GM/dL (10.7-15.3); LYMPH % 34.9 % (8-40); MCH 30.4 pg (25.7-33.7); MCHC 34.2 g/dl (32.0-36.0); MEAN CELL VOLUME 88.9 fl (80-96); MONO % 7.9 % (3.8-10.2); NEUT % 55.3 % (42.8-82.8); PLATELET COUNT 216 K/MM3 (134-434); RBC 4.64 M/mm3 (3.60-5.2); WHITE BLOOD COUNT 5.8 K/mm3 (4.0-10.0)
[2019-02-14 13:12] LABS: ALBUMIN 3.7 g/dl (3.4-5.0); ALK PHOS 78 U/L (45-117); ANION GAP 9 MMOL/L (8-16); BILIRUBIN,TOTAL 0.5 mg/dL (0.2-1); CALCIUM 9.5 mg/dL (8.5-10.1); CHLORIDE 104 mmol/L (98-107); CO2 28 mmol/L (21-32); GLUCOSE,RANDOM 137 mg/dL (74-106); SGOT/AST 17 U/L (15-37); SGPT/ALT 18 U/L (13-61); SODIUM 141 mmol/L (136-145); TOT PROT 7.9 g/dl (6.4-8.2)
--- NOTE | 2019-02-14 13:36 | PDOC ---
Attending Attestation - Resident Resident Name: Heide Rausch - ED Attending Attestation I have performed the following: I have examined & evaluated the patient, The case was reviewed & discussed with the resident, I agree w/resident's findings & plan - HPI HPI: 02/14/19 13:34 74y/o F with progressive sob/CORONA/edema over several weeks. no chest pain/ pressure. - Physicial Exam PE: 02/14/19 13:35 VSS, o2 wnl bibasilar crackles, heart regular abd benign - Medical Decision Making 02/14/19 13:35 74y/o F with progressive CORONA and intermittent cp for several weeks, risk factors for ACS, ? CHF/valve pathology. labs, ua ekg, cxr admit for cardiac workup Heart Score/ECG Review #1 General ECG Interpretation: Sinus Rhythm, Normal Rate, Normal Intervals, No acute ischemic changes
[2019-02-14] MEDS ORDERED: ACETAMINOPHEN 325 MG TABLET (FP) PO PRN (13:38)
--- NOTE | 2019-02-14 13:45 | HP ---
Admitting History and Physical - Primary Care Physician PCP: Yeyo Anderson - Admission Chief Complaint: chest pain , sob, cough History of Present Illness: ER HISTORY-- - History of Present Illness Initial Comments: 02/14/19 11:43 The patient is a 74 year old female with a PMH of NIDDM, HTN presents with 2 month h/o shortness of breath and chest pain. Shortness of breath is on exertion and has been worsening over the last two months. Endorses associated leg swelling and notes she has had to sleep on an extra pillow at night. Patient also c/o two month h/o intermittent chest pain that occurs for 10 minutes twice daily. Chest pain is like sharp needle pokes and is not associated with movement or breathing. Does not associate chest pain with dyspneic episodes and no associated lightheadedness, palpitations, nausea, diaphoresis. Notes she had a productive (yellowish sputum) cough last week and her truck rental manager informed her that the water in the building tested positive for Legionella. H/o negative stress testing 10 years previous. Remote h/o smoking for one year in her early 20's. Allergy: Floroquinolones, HANNAH-I PMD: Dr. Yeyo Anderson Pt examined by me in the ER friend at bedside Pt unable to sleep flat , wakes up with a choking sensation for the last few nights had chest tightness No palpitations or dizziness Unable to walk for long distances due to SOB Her apartment building had 2 cases pf Legionella and she has mold in the apartments- no pets, its carpeted History Source: Patient Limitations to Obtaining History: No Limitations - Past Medical History Cardiovascular: Yes: HTN - Smoking History Smoking history: Never smoked - Alcohol/Substance Use Hx Alcohol Use: Yes (social) Home Medications - Allergies Allergies/Adverse Reactions: Allergies Allergy/AdvReac Type Severity Reaction Status Date / Time HANNAH Inhibitors Allergy Verified 02/14/19 10:21 ciprofloxacin [From Cipro] Allergy Verified 02/14/19 10:21 ciprofloxacin HCl Allergy Verified 02/14/19 10:21 [From Cipro] - Home Medications Home Medications: Ambulatory Orders Metoprolol Succinate [Toprol Xl] 50 mg PO DAILY 01/17/17 metFORMIN HCL [Metformin HCl] 500 mg PO DAILY 01/17/17 Losartan/Hydrochlorothiazide [Losartan-Hctz 100-25 mg Tab] 1 each PO DAILY 07/20 Acetaminophen [Tylenol .Regular Strength -] 650 mg PO Q4H PRN tablet 07/21/18 Aspirin [ASA -] 81 mg PO DAILY tab.chew 07/21/18 Atorvastatin Ca [Lipitor] 10 mg PO HS #30 tablet 07/21/18 Meloxicam [Mobic] 15 mg PO HS 02/14/19 Family Disease History - Family Disease History Family History: Denies Review of Systems - Review of Systems Constitutional: denies: Chills, Fever, Night Sweats, Unintentional Wgt. Loss Cardiovascular: reports: Chest Pain, Edema, Shortness of Breath. denies: Palpitations Respiratory: reports: Cough, PND, SOB on Exertion Physical Examination Vital Signs: Vital Signs Temperature 97.9 F 02/14/19 10:22 Pulse Rate 68 02/14/19 10:22 Respiratory Rate 18 02/14/19 10:22 Blood Pressure 153/82 02/14/19 10:22 O2 Sat by Pulse Oximetry (%) 98 02/14/19 10:22 Constitutional: Yes: No Distress, Calm Cardiovascular: Yes: Regular Rate and Rhythm. No: JVD Respiratory: Yes: CTA Bilaterally Gastrointestinal: Yes: Normal Bowel Sounds, Soft, Abdomen, Obese. No: Tenderness Edema: Yes Edema: LLE: 1+, RLE: 1+ Peripheral Pulses WNL: Yes Psychiatric: Yes: WNL Labs: CBC, BMP 02/14/19 12:20 02/14/19 12:20 Imaging - Results Chest X-ray: Image Reviewed (clear) EKG: Image Reviewed (NSR) Problem List - Problems (1) Dyspnea Code(s): R06.00 - DYSPNEA, UNSPECIFIED (2) HTN (hypertension) Code(s): I10 - ESSENTIAL (PRIMARY) HYPERTENSION Assessment/Plan PLAN R/O CHF Check Echo serial cardiac enzymes Tele monitoring x 24 hours OOB daily Check labs Check Urine antigens for legionella Check allergy panel lasix daily-- low dose
[2019-02-14] MEDS ORDERED: ASPIRIN 81 MG CHEWABLE TABLETS ONE (15:17)
[2019-02-14] MEDS ORDERED: ACETAMINOPHEN 325 MG TABLET (FP) ONE (15:17)
[2019-02-14] MEDS: ASPIRIN 81 MG CHEWABLE TABLETS PO SCH (15:26)
--- NOTE | 2019-02-14 15:28 | EKG ---
Test Reason : Blood Pressure : / mmHG Vent. Rate : 061 BPM Atrial Rate : 061 BPM P-R Int : 148 ms QRS Dur : 080 ms QT Int : 410 ms P-R-T Axes : 038 -12 026 degrees QTc Int : 412 ms NORMAL SINUS RHYTHM VOLTAGE CRITERIA FOR LEFT VENTRICULAR HYPERTROPHY NONSPECIFIC T WAVE ABNORMALITY ABNORMAL ECG WHEN COMPARED WITH ECG OF 20-JUL-2018 12:10, PREMATURE VENTRICULAR COMPLEXES ARE NO LONGER PRESENT VENT. RATE HAS DECREASED BY 30 BPM Confirmed by AMOR GOLDSTEIN MD ([id number]) on 02/14/2019 3:28:09 PM Referred By: Confirmed By:AMOR GOLDSTEIN MD
[2019-02-14] MEDS ORDERED: FUROSEMIDE 40 MG/4 ML INJECTABLE VIAL ONE (16:13)
[2019-02-14] MEDS: FUROSEMIDE 40 MG/4 ML INJECTABLE VIAL IVPUSH SCH (16:18)
[2019-02-14] MEDS ORDERED: INSULIN (NOVOLOG) ASPART 100 UNITS/ML 10ML VIAL SQ SCH (16:30)
--- NOTE | 2019-02-14 16:32 | ECHO ---
Name: SHEA CARLA Exam:Adult Echocardiogram Study Date: 02/14/2019 02:35 PM Age: 74 yrs Reason For Study: LVEF Height: 63 in Weight: 119 lb BSA: 1.6 m2 MMode/2D Measurements & Calculations IVSd: 1.2 cm Ao root diam: 2.5 cm LVIDd: 4.1 cm LA dimension: 3.9 cm LVIDs: 2.6 cm LVPWd: 0.81 cm EDV(Teich): 73.6 ml LVOT diam: 2.1 cm ESV(Teich): 24.5 ml LAV (MOD-bp): 64.0 ml Doppler Measurements & Calculations MV E max dariel: 81.7 cm/sec Ao V2 max: 182.2 cm/sec MV A max dariel: 86.1 cm/sec Ao max P.3 mmHg MV E/A: 0.95 Ao V2 mean: 139.2 cm/sec MV dec time: 0.19 sec Ao mean P.4 mmHg Ao V2 VTI: 44.1 cm RICHARD(I,D): 2.2 cm2 AI P1/2t: 923.5 msec RICHARD(V,D): 2.4 cm2 AI max dariel: 323.9 cm/sec LV V1 max P.6 mmHg AI max P.0 mmHg LV V1 mean P.7 mmHg AI dec slope: 102.7 cm/sec2 LV V1 max: 128.3 cm/sec LV V1 mean: 91.0 cm/sec LV V1 VTI: 29.2 cm MR max dariel: 409.6 cm/sec SV(LVOT): 99.2 ml MR max P.1 mmHg TR max dariel: 205.9 cm/sec Med Peak E' Dariel: 4.6 cm/sec TR max P.0 mmHg Med E/e': 17.9 Lat Peak E' Dariel: 7.1 cm/sec Lat E/e': 11.5 Procedure A complete two-dimensional transthoracic echocardiogram was performed (2D, M-mode, Doppler and color flow Doppler). Left Ventricle The left ventricular size, thickness and function are normal. The left ventricular ejection fraction is normal. Ejection Fraction = 60-65%. The left ventricular wall motion is normal. Right Ventricle The right ventricle is normal in size and function. Atria Normal left and right atrial size and function. Mitral Valve There is no mitral regurgitation noted. Tricuspid Valve No tricuspid regurgitation. There was insufficient TR detected to calculate RV systolic pressure. Aortic Valve No hemodynamically significant valvular aortic stenosis. Trace aortic regurgitation. Pulmonic Valve There is no pulmonic valvular regurgitation. Great Vessels The aortic root is normal size. Pericardium/Pleura There is no pericardial effusion. Interpretation Summary The left ventricular size, thickness and function are normal The right ventricle is normal in size and function. Trace aortic regurgitation. MD Scott Alston 02/14/2019 04:32 PM
[2019-02-14 16:50] LABS: ALBUMIN 3.2 g/dl (3.4-5.0); ALK PHOS 71 U/L (45-117); ANION GAP 7 MMOL/L (8-16); BILIRUBIN,TOTAL 0.3 mg/dL (0.2-1); BLOOD UREA NITROGEN 21.4 mg/dL (7-18); CALCIUM 8.9 mg/dL (8.5-10.1); CHLORIDE 108 mmol/L (98-107); CO2 27 mmol/L (21-32); CREATININE 1.1 mg/dL (0.55-1.3); GLUCOSE,RANDOM 174 mg/dL (74-106); POTASSIUM 3.7 mmol/L (3.5-5.1); SGOT/AST 17 U/L (15-37); SGPT/ALT 18 U/L (13-61); SODIUM 142 mmol/L (136-145); TOT PROT 6.9 g/dl (6.4-8.2)
[2019-02-14] MEDS ORDERED: ATORVASTATIN CA 10 MG TABLET (FP) PO SCH (22:00)
[2019-02-15 03:28] VITALS: BMI 37.5
[2019-02-15] MEDS: ASPIRIN 81 MG CHEWABLE TABLETS PO SCH (09:32)
[2019-02-15] MEDS: FUROSEMIDE 40 MG/4 ML INJECTABLE VIAL IVPUSH SCH (09:32)
[2019-02-15] MEDS ORDERED: LOSARTAN 50MG/HCTZ 12.5MG 1 TAB (FP) PO SCH (10:00)
--- NOTE | 2019-02-15 10:38 | DS ---
Physical Examination Vital Signs: Vital Signs Temperature 97.4 F L 02/15/19 06:00 Pulse Rate 77 02/15/19 06:00 Respiratory Rate 18 02/15/19 06:00 Blood Pressure 143/79 02/15/19 06:00 O2 Sat by Pulse Oximetry (%) 98 02/14/19 22:15 Findings/Remarks: pt seen/ examined chart reviewed feels well denies cp breathing stable slept well Constitutional: Yes: No Distress, Calm Eyes: Yes: Conjunctiva Clear HENT: Yes: WNL Neck: Yes: WNL, Supple Cardiovascular: Yes: Regular Rate and Rhythm Respiratory: Yes: CTA Bilaterally Gastrointestinal: Yes: Soft Edema: No Neurological: Yes: WNL, Alert Psychiatric: Yes: Alert Labs: CBC, BMP 02/14/19 12:20 02/14/19 15:35 Discharge Summary Reason For Visit: SOB,CHEST PAIN Current Active Problems Dyspnea (Acute) HTN (hypertension) (Acute) Hospital Course: Mi ruled out No evidence of chf echo -ok cxr/ bnp- ok Likely allergies contributing Discussed should have stress test --Pt would like to go home and do as out pt-- she will follow with her pmd Meds reconcilled Discussed with Nursing staff also Condition: Stable - Instructions Disposition: HOME - Home Medications Comprehensive Discharge Medication List: Ambulatory Orders Metoprolol Succinate [Toprol Xl] 50 mg PO DAILY 01/17/17 metFORMIN HCL [Metformin HCl] 500 mg PO DAILY 01/17/17 Losartan/Hydrochlorothiazide [Losartan-Hctz 100-25 mg Tab] 1 each PO DAILY 07/20 Acetaminophen [Tylenol .Regular Strength -] 650 mg PO Q4H PRN tablet 07/21/18 Aspirin [ASA -] 81 mg PO DAILY tab.chew 07/21/18 Atorvastatin Ca [Lipitor] 10 mg PO HS #30 tablet 07/21/18
[2019-02-15 11:16] VITALS: BP 150/82; PULSE 84; TEMP 98
[2019-02-21 19:08] LABS: D001 D PTERONYSSINUS 0.11 kU/L (Class 0/I); D002 D FARINAE MITE 0.12 kU/L (Class 0/I); E005 DOG HAIR/DANDER <0.10 kU/L (Class 0); F001 EGG WHITE <0.10 kU/L (Class 0); M006-ALTERNARIA <0.10 kU/L (Class 0)
== END 2019-02-15 14:21 | disposition home or self-care (01) ==
LOC: JER 10:14 → JERBED 13:37 → J4W 22:20
PROVIDERS: ADMIT Internal Medicine; ATTEND Internal Medicine
PROC: 3E033GC Introduction of Other Therapeutic Substance into Peripheral Vein, Percutaneous Approach (ICD-10-PCS; principal; 2019-02-14)
DX: I10 Essential (primary) hypertension (principal); E11.9 Type 2 diabetes mellitus without complications; Z79.82 Long term (current) use of aspirin; Z79.84 Long term (current) use of oral hypoglycemic drugs; Z88.8 Allergy status to other drugs, medicaments and biological substances
CPT/HCPCS: 36415; 71045-TC-FY; 80053; 82550; 82553; 82785; 82962; 83880; 84443; 84484; 85025; 86003; 86713; 87899; 93005; 93010; 93306-TC; 96374; 99285-25; G0378

== ENCOUNTER 2023-12-04 17:19 | Emergency (ER) | payer OTHER, BC ==
[2023-12-04 17:33] VITALS: BP 164/80; PULSE 87; RESP 17; TEMP 98.6; BMI 34.3
[2023-12-04] MEDS ORDERED: CEPHALEXIN MONOHYDRATE 500 MG CAPSULE (UD) ONE (18:40)
[2023-12-04] MEDS: CEPHALEXIN MONOHYDRATE 500 MG CAPSULE (UD) PO ONE (18:43)
== END 2023-12-04 18:56 | disposition home or self-care (01) ==
LOC: JERFT 17:19
PROC: 0X940ZZ Drainage of Right Axilla, Open Approach (ICD-10-PCS; principal; 2023-12-04)
DX: L02.411 Cutaneous abscess of right axilla (principal)
CPT/HCPCS: 10060; 99284-25

== ENCOUNTER 2025-02-13 14:26 | Emergency (ER) | payer OTHER, BC ==
[2025-02-13 14:37] VITALS: BP 177/78; PULSE 94; RESP 16; TEMP 98.1; BMI 34.7
[2025-02-13] MEDS ORDERED: ACETAMINOPHEN 325 MG TABLET (FP) ONE (15:34)
[2025-02-13] MEDS ORDERED: LIDOCAINE 5% TOPICAL PATCH ONE (15:35)
[2025-02-13] MEDS ORDERED: DIPHTH,PERTUSS(ACELL),TET 0.5 ML DISP.SYRIN IM ONE (15:35)
[2025-02-13] MEDS: DIPHTH,PERTUSS(ACELL),TET 0.5 ML DISP.SYRIN IM ONE (15:56)
[2025-02-13] MEDS: LIDOCAINE 5% TOPICAL PATCH TP ONE (16:00)
[2025-02-13] MEDS: ACETAMINOPHEN 500 MG TABLET (FP) PO ONE (16:00)
[2025-02-13] MEDS ORDERED: BACITRACIN 0.9 GM PACKET TP ONE (16:53)
[2025-02-13] MEDS ORDERED: BACITRACIN 0.9 GM PACKET ONE (16:54)
[2025-02-13] MEDS ORDERED: LIDOCAINE PATCH REMOVAL MC SCH (22:00)
== END 2025-02-13 17:04 | disposition home or self-care (01) ==
LOC: JER 14:26
PROC: 3E0234Z Introduction of Serum, Toxoid and Vaccine into Muscle, Percutaneous Approach (ICD-10-PCS; principal; 2025-02-13)
DX: S51.012A Laceration without foreign body of left elbow, initial encounter (principal); M70.22 Olecranon bursitis, left elbow; M54.50 Low back pain, unspecified; M53.3 Sacrococcygeal disorders, not elsewhere classified; Z23 Encounter for immunization; W01.198A Fall on same level from slipping, tripping and stumbling with subsequent striking against other object, initial encounter; Y92.410 Unspecified street and highway as the place of occurrence of the external cause
CPT/HCPCS: 72100-TC-FY; 73070-TC-LT-FY; 90471; 90715; 99284-25